=== PATIENT | female | born 1960 | race Caucasian/White ===

== ENCOUNTER → 2016-08-06 | Outpatient (CLI) | payer MEDICARE, MEDICAID ==
[~2016-08-06] MED LIST: ALBUTEROL SULFATE 2.5 MG/3 ML VIAL NEB ONE
== END | disposition home or self-care (01) ==
LOC: CT 14:04
PROVIDERS: ATTEND Internal Medicine
DX: R91.1 Solitary pulmonary nodule (principal)
CPT/HCPCS: 71250; 94060; J7611

== ENCOUNTER → 2016-09-04 | Outpatient (CLI) | payer MEDICARE, MEDICAID | END | disposition home or self-care (01) | LOC: GMAM 13:08 | PROVIDERS: ATTEND Family Medicine | DX: Z79.899 Other long term (current) drug therapy (principal); R30.0 Dysuria; E78.5 Hyperlipidemia, unspecified ==

== ENCOUNTER → 2016-09-15 | Outpatient (CLI) | payer MEDICARE, MEDICAID ==
--- NOTE | 2016-09-16 10:26 | CT ---
EXAM DESCRIPTION: CT ABDOMEN AND PELVIS WITHOUT AND WITH CONTRAST CLINICAL HISTORY: MICROSCOPIC HEMATURIA COMPARISON: None Available. TECHNIQUE: CT of the abdomen and pelvis are performed prior to and during IV bolus administration of nonionic contrast. Oral contrast media was not utilized. This exam was performed according to our departmental dose-optimization program, which includes automated exposure control, adjustment of the mA and/or kV according to patient size and/or use of iterative reconstruction technique. FINDINGS: Noncontrast imaging demonstrates mild atelectatic or fibrotic changes in each posterior lung base more prominent on the right. No free abdominal air and no abdominal or pelvic abnormal fluid collections are noted. Fluid-filled loops of bowel and rather marked lordosis of the lumbar spine, an anatomic variant is noted. Numerous small noncalcified stones in the dependent gallbladder is evident without ductal dilation. The adrenal glands are small and normal in no evidence of hydronephrosis is evident. A tiny one or 2 mm nonobstructing calculus is suggested in the lower pole calyx on the right. Intrarenal calculi on the left are not apparent. Normal size and appearance of the liver without focal mass and a small normal spleen is present. The unenhanced pancreas is unremarkable. Cortical enhancement of the kidneys demonstrate a tiny subcentimeter cyst involving the lower pole of the right kidney but no solid masses or left renal abnormalities or hydronephrosis noted. The distended gallbladder with multiple small stones is again noted. The right colon and cecum is mobile in appearance with the cecum actually lying to the left of midline in the upper abdomen. This represents an anatomic variant. Aortic calcification without aneurysm is noted. A widely patent superior mesenteric artery with moderate stenosis of the proximal celiac artery is evident. The retroperitoneum is otherwise unremarkable. The anterior abdominal wall is unremarkable with a small right and modest left fat-containing inguinal hernia. There is no evidence of bowel obstruction. Anteverted uterus in the central lower pelvis is noted without adnexal mass. No definite bladder abnormality is apparent. The bony spine and pelvis is unremarkable. IMPRESSION: 1. Normal-appearing kidneys with tiny one or 2 mm nonobstructing calyceal stone lower pole of the right kidney with a tiny subcentimeter simple cyst noted on contrast enhanced examination as well. Otherwise, normal appearance of the kidneys and bladder and collecting systems. 2. Cholelithiasis. 3. Aorto vascular calcification with moderate stenosis at the origin of the celiac axis. 4. Incidental note of retroaortic left renal vein, an anatomic variant. 5. Small fat-containing inguinal hernias bilaterally Electronically signed by: García Stephens MD 09/16/2016 10:23 AM CDT
== END ==
LOC: CT 13:38
PROVIDERS: ATTEND Family Medicine
DX: R31.21 Asymptomatic microscopic hematuria (principal); K80.20 Calculus of gallbladder without cholecystitis without obstruction; N20.0 Calculus of kidney; K40.20 Bilateral inguinal hernia, without obstruction or gangrene, not specified as recurrent

== ENCOUNTER → 2016-12-03 | Outpatient (CLI) | payer MEDICARE, MEDICAID | END | disposition home or self-care (01) | LOC: GMAM 16:50 | PROVIDERS: ATTEND Family Medicine | DX: R53.83 Other fatigue (principal); E83.42 Hypomagnesemia; E55.9 Vitamin D deficiency, unspecified ==

== ENCOUNTER → 2017-02-18 | Outpatient (CLI) | payer MEDICARE, MEDICAID | END | disposition home or self-care (01) | LOC: GMAM 16:47 | PROVIDERS: ATTEND Family Medicine | DX: E55.9 Vitamin D deficiency, unspecified (principal) ==

== ENCOUNTER → 2017-06-11 | Outpatient (CLI) | payer MEDICARE, MEDICAID | LOC: YCHH 15:34 | PROVIDERS: ATTEND Family Medicine | DX: E55.9 Vitamin D deficiency, unspecified (principal); E03.9 Hypothyroidism, unspecified; D64.9 Anemia, unspecified; E88.9 Metabolic disorder, unspecified; Z13.220 Encounter for screening for lipoid disorders ==

== ENCOUNTER → 2017-12-14 | Outpatient (CLI) | payer MEDICARE, MEDICAID | LOC: GMAM 16:44 | PROVIDERS: ATTEND Family Medicine | DX: R53.83 Other fatigue (principal) ==

== ENCOUNTER → 2017-12-23 | Outpatient (CLI) | payer MEDICARE, MEDICAID ==
--- NOTE | 2017-12-23 15:34 | CT ---
EXAM DESCRIPTION: Chest w/Contrast CLINICAL HISTORY: 57 years Female, PULMONARY NODULE COMPARISON: None. TECHNIQUE: Transaxial images were obtained with intravenous contrast media. Sagittal and coronal reconstruction was performed.This exam was performed according to our departmental dose-optimization program, which includes automated exposure control, adjustment of the mA and/or kV according to patient size and/or use of iterative reconstruction technique. FINDINGS: The thyroid is normal in appearance. No pathologic axillary adenopathy is seen. No hilar or mediastinal adenopathy is detected. No adrenal masses are detected. Minimal basilar atelectasis is observed. Bullous changes are observed in both lung apices. No parenchymal nodule or mass is seen. Degenerative changes are seen in the thoracic spine. IMPRESSION: 1. Marked findings of bullous emphysema are observed most pronounced in the upper lobes. 2. No pulmonary nodule is detected. Electronically signed by: Jorje Aguilar MD 12/23/2017 3:33 PM CDT
--- NOTE | 2017-12-24 16:31 | MAM ---
EXAM DESCRIPTION: 3D Screening BILATERAL : Digital Mammography. CLINICAL HISTORY: 57 years Female SCREEN . No complaints or personal history of breast cancer. Family history of ovarian cancer, sister, but no family history of breast cancer. Lifetime risk of developing breast cancer (Tyrer-Cuzick model)(%): 5.6. COMPARISON: 2-D digital screening bilateral mammography 12/26/2014.. No prior reports available. TECHNIQUE: Bilateral CC and MLO projection full-field images, Digital tomosynthesis mammographic technique. Bilateral digital 2-D full-field MLO images. CAD not utilized. Technically difficult study due to left shoulder with difficulty in imaging the left pectoral muscle on the MLO image. Also similar restriction on the prior mammograms. FINDINGS: The breast parenchymal density pattern is: Heterogeneously dense breast tissue, which may obscure small masses. No skin thickening or nipple retraction. Bilateral axillary lymph nodes. Few, solitary microcalcifications bilaterally. No new focal, stellate mass or density, focal asymmetry , and no suspicious microcalcifications bilaterally. Stable mammograms compared to prior study. Taking into account, differences in mammographic technique. IMPRESSION: Benign exam. BIRAD CATEGORY: 2 BENIGN FINDINGS. RECOMMENDATIONS: FOLLOW UP: Routine digital bilateral screening, one year interval from November 2017. Written communication explaining the IMPRESSION and follow-up, will be mailed to the patient and referring health care provider. According to the [employer], yearly mammograms are recommended starting at age 40 and continuing as long as a woman is in good health. Any breast change noted on a breast self-exam should be reported promptly to the patient's healthcare provider. Breast MRI is recommended for women with an approximately 20-25% or greater lifetime risk of breast cancer, including women with a strong family history of breast or ovarian cancer and women who have been treated for Hodgkin's disease. A negative mammographic report should not delay tissue diagnosis in patients with significant clinical history or physical findings. Extremely dense breast tissue limits the sensitivity of digital mammography. Electronically signed by: Tee Gresham MD 12/24/2017 4:30 PM CDT
== END ==
LOC: MAMMO 14:00
PROVIDERS: ATTEND Family Medicine
DX: Z12.31 Encounter for screening mammogram for malignant neoplasm of breast (principal); R91.1 Solitary pulmonary nodule

== ENCOUNTER → 2018-03-30 | Outpatient (CLI) | payer MEDICARE, MEDICAID | LOC: GMAM 16:45 | PROVIDERS: ATTEND Family Medicine | DX: R10.84 Generalized abdominal pain (principal) ==

== ENCOUNTER → 2018-04-04 | Outpatient (CLI) | payer MEDICARE, MEDICAID ==
--- NOTE | 2018-04-04 19:49 | US ---
EXAM DESCRIPTION: Abdomen,Complete: Ultrasound. CLINICAL HISTORY: GENERALIZED ABDOMINAL PAIN COMPARISON: CT scan of the abdomen and pelvis 09/15/2016. Cholelithiasis. TECHNIQUE: Transabdominal scannin-dimensional and Doppler modes. FINDINGS: Gallbladder: Numerous echogenic gallstones which are gravity dependent with patient change in position. Acoustic shadowing. Wall thickness 1.1 mm with no surrounding fluid. Nontender with transducer pressure on the patient. Common bile duct: Normal caliber 5.6 mm. Liver: Long axis of the right lobe is 15.0 cm. Normal echogenicity. Normal hepatopedal flow of the portal vein with normal caliber. No intrahepatic biliary dilatation. Smooth capsule with no ascites. Pancreas: Included segments with normal echogenicity. Duct not seen.. Abdominal aorta: Normal caliber from the proximal segment to the distal bifurcation with minimal atherosclerotic irregularity. IVC: visualized; normal caliber. Spleen normal echogenicity; long axis measurement is 10.7 cm. Right kidney: 10.2 cm long axis with normal cortical thickness and echogenicity. No hydronephrosis, perirenal fluid, or abnormal vascularity. Left kidney: 10.7 cm long axis with normal cortical thickness and echogenicity. No hydronephrosis, perirenal fluid, or abnormal vascularity. IMPRESSION: 1. Cholelithiasis of the gallbladder. No wall thickening or fluid. Nontender with transducer pressure. Normal caliber of the common bile duct. 2. ultrasound of the liver, pancreas, spleen, and kidneys is unremarkable. Normal caliber of the abdominal aorta and the IVC. Electronically signed by: Tee Gresham MD 04/04/2018 7:46 PM [facility]
== END ==
LOC: US 13:30
PROVIDERS: ATTEND Family Medicine
DX: R10.84 Generalized abdominal pain (principal); K80.20 Calculus of gallbladder without cholecystitis without obstruction

== ENCOUNTER → 2018-04-08 | Outpatient (CLI) | payer MEDICARE, MEDICAID | LOC: YCHH 13:18 | PROVIDERS: ATTEND Family Medicine | DX: D64.9 Anemia, unspecified (principal); N18.9 Chronic kidney disease, unspecified; E78.5 Hyperlipidemia, unspecified ==

== ENCOUNTER → 2018-04-11 | Outpatient (CLI) | payer MEDICARE, MEDICAID | LOC: GMAM 16:56 | PROVIDERS: ATTEND Family Medicine | DX: E53.8 Deficiency of other specified B group vitamins (principal); E03.9 Hypothyroidism, unspecified; E55.9 Vitamin D deficiency, unspecified ==

== ENCOUNTER → 2018-10-06 | Outpatient (CLI) | payer MEDICARE, MEDICAID | LOC: GMAM 16:31 | PROVIDERS: ATTEND Family Medicine | DX: E53.8 Deficiency of other specified B group vitamins (principal); E03.9 Hypothyroidism, unspecified; E55.9 Vitamin D deficiency, unspecified; I10 Essential (primary) hypertension; Z79.899 Other long term (current) drug therapy ==

== ENCOUNTER → 2019-03-21 | Outpatient (CLI) | payer MEDICARE, MEDICAID | LOC: GMAM 16:59 | PROVIDERS: ATTEND Family Medicine | DX: M25.50 Pain in unspecified joint (principal); Z79.899 Other long term (current) drug therapy ==

== ENCOUNTER → 2019-04-13 | Outpatient (CLI) | payer MEDICARE, MEDICAID | LOC: YCHH 13:35 | PROVIDERS: ATTEND Family Medicine | DX: R79.89 Other specified abnormal findings of blood chemistry (principal); E78.5 Hyperlipidemia, unspecified; D63.1 Anemia in chronic kidney disease; E53.8 Deficiency of other specified B group vitamins; E03.9 Hypothyroidism, unspecified; E55.9 Vitamin D deficiency, unspecified ==

== ENCOUNTER → 2019-10-11 | Outpatient (CLI) | payer MEDICARE, MEDICAID | LOC: YCHH 12:36 | PROVIDERS: ATTEND Family Medicine | DX: R79.89 Other specified abnormal findings of blood chemistry (principal); E55.9 Vitamin D deficiency, unspecified; E03.9 Hypothyroidism, unspecified; E53.8 Deficiency of other specified B group vitamins; E78.5 Hyperlipidemia, unspecified; D64.9 Anemia, unspecified ==

== ENCOUNTER 2019-12-14 20:13 | Emergency (ER) | payer MEDICARE, OTHER ==
[2019-12-14] MEDS ORDERED: SODIUM CHLORIDE 0.9% 1000ML 1,000 ML IVS ONE ×2 (20:34→21:45)
--- NOTE | 2019-12-14 21:03 | RAD ---
EXAM: XR Chest, 1 View CLINICAL HISTORY: ruq/rt lower ant chest pain 4 days TECHNIQUE: Frontal view of the chest. COMPARISON: 12/23/2017. FINDINGS: Lungs: Stable bullous emphysematous changes are present. Pleural space: No pneumothorax or pleural effusion. Heart: Normal cardiac size and configuration. Mediastinum: No abnormality noted. Bones/joints: No osseous destruction or sclerosis noted. IMPRESSION: Chronic changes as above. No acute disease. Electronically signed by: Irais Ness MD 12/14/2019 9:01 PM CDT
[2019-12-14 22:08] VITALS: O2SAT 96
--- NOTE | 2019-12-14 22:57 | ED.PDOC ---
History of Present Illness - General Chief Complaint: GI Problem Stated Complaint: RUQ pain Time Seen by Provider: 12/14/19 20:28 Source: patient Exam Limitations: no limitations - History of Present Illness Initial Comments: The patient is a 59-year-old female presented emergency room secondary to 4 days of intermittent right upper quadrant pain. It does not seem to be made worse with palpation, movement, coughing. Meals do not seem to affect it. When the pain comes on it does seem to make her nauseated however. She does have known gallstones. No vomiting. No evidence of jaundice. No fever. No rash. She does have a mild history of reflux. Timing/Duration: intermittent, other Severity: moderate - 4 days Improving Factors: nothing Worsening Factors: nothing Associated Symptoms: malaise Allergies/Adverse Reactions: Allergies NO KNOWN ALLERGY Allergy (Unverified 05/18/13 17:30) Home Medications: Ambulatory Orders Famotidine 20 mg PO DAILY #30 tab 12/14/19 Levetiracetam [Keppra] 500 mg PO DAILY 12/14/19 Levothyroxine Sodium 75 mcg PO DAILY 12/14/19 Oxycodone W/ Acetaminophen [Oxycodone/Acetaminophen 10-325 mg] 10 mg 5XD 12/14/19 Review of Systems - Review of Systems Constitutional: States: no symptoms reported EENTM: States: no symptoms reported Respiratory: States: no symptoms reported Cardiology: States: no symptoms reported Gastrointestinal/Abdominal: States: abdominal pain, nausea Genitourinary: States: no symptoms reported Musculoskeletal: States: no symptoms reported Skin: States: no symptoms reported Neurological: States: no symptoms reported Endocrine: States: no symptoms reported All other Systems: No Change from Baseline Past Medical History (General) - Patient Medical History Hx Seizures: Yes Hx Stroke: Yes Hx Dementia: No Hx Asthma: No Hx of COPD: Yes Hx Cardiac Disorders: No Hx Congestive Heart Failure: No Hx Pacemaker: No Hx Hypertension: No Hx Thyroid Disease: Yes Hx Diabetes: No Hx Gastroesophageal Reflux: No Hx Renal Disease: No Hx Cancer: No Hx of HIV: No Hx Hepatitis C: No Hx MRSA: No MRSA Source:: Wound Surgical History: other - Vaccination History Hx Tetanus, Diphtheria Vaccination: No Hx Influenza Vaccination: No Hx Pneumococcal Vaccination: No - Social History Hx Tobacco Use: Yes - Pack a day Hx Chewing Tobacco Use: No Hx Alcohol Use: No Hx Substance Use: No Hx Substance Use Treatment: No Hx Depression: No Feels Threatened In Home Enviroment: No Feels Threatened In a Relationship: No Hx Physical Abuse: No Hx Emotional Abuse: No Hx Suspected Abuse: No - Female History Patient is a Female of Child Bearing Age (10 -59 yrs old): No Patient : No Family Medical History - Family History Mother Living Status: Hx Family Cancer: Yes Physical Exam - Physical Exam General Appearance: Alert, Comfortable, No apparent distress Eye Exam: bilateral normal Ears, Nose, Throat: hearing grossly normal, normal pharynx Neck: full range of motion, supple Respiratory: lungs clear, normal breath sounds, no respiratory distress, no accessory muscle use Cardiovascular/Chest: normal peripheral pulses, regular rate, rhythm, no edema Peripheral Pulses: radial,right: 2+, radial,left: 2+ Gastrointestinal/Abdominal: non tender - No definite palpable mass. 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 Neurologic: alert, normal mood/affect, oriented x 3, other - Chronic neurological deficits to the left side Skin Exam: normal color Comments: Vital Signs - 24 hr 12/14/19 12/14/19 12/14/19 20:27 21:21 22:00 Temperature 97.2 F L Pulse Rate [ 88 76 72 Pulse Ox] Respiratory 16 16 16 Rate Blood Pressure 132/67 128/72 132/74 [Left Arm] O2 Sat by Pulse 98 95 96 Oximetry Progress - Progress Progress: 12/14/19 22:59 The patient is a 59-year-old female presented emergency room secondary to intermittent right upper quadrant pain. The patient does have known gallstones and this may be the source of her discomfort. Laboratory work shows no significant evidence of infection and no elevation of liver function test. Physical exam is also reassuring at this time. The patient has received 2 L of fluid as laboratory work did show some dehydration. I want to place the patient on a couple of weeks of famotidine in case this is some mild gastritis or duodenitis causing the symptoms. I do however believe she needs to follow-up with the general surgeon of her choice in the next couple of weeks for a further evaluation, to see if additional work-up in the form of ultrasonography, which is not available tonight, or something along the lines of a HIDA scan might be warranted for further work-up. She does also need to avoid constipation which can also cause intermittent abdominal pain. ER warnings were given for any significant worsening. [email or web address] [id number] - Results/Orders Results/Orders: Chest x-ray shows no acute pathology. Laboratory Tests 12/14/19 12/14/19 12/14/19 20:59 20:59 22:34 WBC 7.2 RBC 4.53 Hgb 14.2 Hct 40.3 MCV 89.0 MCH 31.3 H MCHC 35.2 RDW 13.1 Plt Count 478 H MPV 6.8 L Absolute Neuts (auto) 2.80 Absolute Lymphs (auto) 3.50 H Absolute Monos (auto) 0.70 Absolute Eos (auto) 0.20 Absolute Basos (auto) 0.10 Neutrophils % 38.0 L Lymphocytes % 48.1 Monocytes % 9.5 H Eosinophils % 3.3 Basophils % 1.1 Sodium 141 Potassium 3.8 Chloride 104 Carbon Dioxide 25 Anion Gap 15.8 BUN 20 H Creatinine 0.58 L BUN/Creatinine Ratio 34.5 H Random Glucose 108 H Serum Osmolality 284.4 Calcium 9.4 Magnesium 1.7 L Total Bilirubin 0.6 AST 27 ALT 29 Alkaline Phosphatase 40 L Creatine Kinase 66 CK-MB (CK-2) 1.9 CK-MB (CK-2) % Not Reportable Troponin I < 0.02 B-Natriuretic Peptide < 15.0 Serum Total Protein 7.7 Albumin 4.5 Globulin 3.2 Albumin/Globulin Ratio 1.4 Amylase 72 Lipase 34 Urine Color Yellow Urine Appearance Clear Urine pH 6.0 Ur Specific [place] 1.025 Urine Protein Negative Urine Glucose (UA) Negative Urine Ketones Negative Urine Blood Negative Urine Nitrite Negative Urine Bilirubin Negative Urine Urobilinogen 0.2 Ur Leukocyte Esterase Negative Urine RBC 0-1 Urine WBC 0 Ur Epithelial Cells 1-3 Urine Bacteria 0 Departure - Departure Clinical Impression: Dehydration Abdominal pain Qualifiers: Abdominal location: right upper quadrant Qualified Code(s): R10.11 - Right upper quadrant pain Disposition: Discharge to Home or Self Care Condition: Fair Departure Forms: ED Discharge - Pt. Copy, Patient Portal Self Enrollment Instructions: Dehydration, Adult (DC) Diet: regular diet Activity: increase activity as tolerated Referrals: García Garcia MD [Primary Care Provider] - 1-2 Weeks Prescriptions: Famotidine 20 mg PO DAILY #30 tab Home Medications: Ambulatory Orders Famotidine 20 mg PO DAILY #30 tab 12/14/19 Levetiracetam [Keppra] 500 mg PO DAILY 12/14/19 Levothyroxine Sodium 75 mcg PO DAILY 12/14/19 Oxycodone W/ Acetaminophen [Oxycodone/Acetaminophen 10-325 mg] 10 mg 5XD 12/14/19 Additional Instructions: The patient is a 59-year-old female presented emergency room secondary to intermittent right upper quadrant pain. The patient does have known gallstones and this may be the source of her discomfort. Laboratory work shows no significant evidence of infection and no elevation of liver function test. Physical exam is also reassuring at this time. The patient has received 2 L of fluid as laboratory work did show some dehydration. I want to place the patient on a couple of weeks of famotidine in case this is some mild gastritis or duodenitis causing the symptoms. I do however believe she needs to follow-up with the general surgeon of her choice in the next couple of weeks for a further evaluation, to see if additional work-up in the form of ultrasonography, which is not available tonight, or something along the lines of a HIDA scan might be warranted for further work-up. She does also need to avoid constipation which can also cause intermittent abdominal pain. ER warnings were given for any significant worsening.
[2019-12-14 23:10] VITALS: BP 128/64; TEMP 97.1
== END 2019-12-14 23:09 | disposition home or self-care (01) ==
LOC: ER 20:13
DX: R10.11 Right upper quadrant pain (principal); E86.0 Dehydration; J44.9 Chronic obstructive pulmonary disease, unspecified; Z86.73 Personal history of transient ischemic attack (TIA), and cerebral infarction without residual deficits; K21.9 Gastro-esophageal reflux disease without esophagitis; F17.200 Nicotine dependence, unspecified, uncomplicated; Z79.899 Other long term (current) drug therapy; I69.998 Other sequelae following unspecified cerebrovascular disease; K80.80 Other cholelithiasis without obstruction
CPT/HCPCS: 36415; 71045; 80053; 81001; 82150; 82550; 82553; 83690; 83735; 83880; 84484; 85025; J7030

== ENCOUNTER → 2019-12-28 | Outpatient (CLI) | payer MEDICARE, OTHER ==
--- NOTE | 2019-12-29 08:59 | CT ---
EXAM DESCRIPTION: CTA Abdomen: Computed Tomography. CLINICAL HISTORY: ISCHEMIC BOWEL COMPARISON: CT scan of the abdomen and pelvis August 2016. TECHNIQUE: CT angiography of the abdominal aorta and pelvis is performed during rapid bolus administration of IV contrast media. Three-dimensional volume-rendering imaging is reviewed along with 2.5 x 2.5 mm source images, and 0.6 mm coronal and sagittal reformats. Followed by 5 minute delayed images of the abdomen and pelvis from the bilateral lung bases to the pubic symphysis. Total Exam DLP: 1520 mGy-cm. This exam was performed according to our departmental CT dose-optimization program which includes automated exposure control, adjustment of the mA and/or kV according to patient size and/or use of iterative reconstruction technique; to reduce radiation dose to as low as reasonably achievable (ALARA). FINDINGS: Upper abdominal aorta: Minimal intimal wall thickening and atherosclerotic calcification. Approximately 25% diameter stenosis of the proximal celiac trunk. Less than 20% diameter stenosis of the proximal SMA. No significant calcification at the major branches from the SMA. Mid-abdominal aorta: Intimal wall thickening. Calcification at the ostium of the right single renal artery; no significant stenoses. Ostium of the single left renal artery is unremarkable. Distal abdominal aorta: Moderate intimal wall thickening and atherosclerotic calcification, especially just superior to the bifurcation. Minimal calcification of the ostium of the internal mesenteric artery. No significant stenosis. Common iliacs: Approximately 40% diameter stenosis of the proximal left common iliac, 55% diameter stenosis 2 cm more distally. Approximately 30% diameter stenosis of the distal right common iliac artery proximal to the bifurcation.. Internal iliacs: Approximately 50% diameter stenosis of the proximal right internal iliac artery and 75% diameter stenosis of the proximal left internal iliac artery. External iliac arteries. Approximately 50% diameter stenosis of the proximal left external iliac artery. Approximately 60% diameter stenosis by soft plaque of the mid left external iliac artery on CTA axial series 2, image 110. Right CASE PACKER: 25% diameter stenosis of the right CASE PACKER just proximal to the bifurcation. No significant stenosis in the proximal right DFA. Right SFA: No significant stenosis in the proximal vessel Left CASE PACKER: 40% diameter stenosis with calcified plaque proximal. Left SFA: No significant stenosis in the proximal vessel. Lung bases and pleura: Minimal bilateral posterior dependent lower lobe atelectasis more right than left. Liver, Stomach, Spleen, Adrenal Glands: Long axis right lobe 16.8 cm no focal lesions. Moderate distention of the stomach by fluid. Adrenal glands and spleen negative. Pancreas, Gallbladder, Ducts: Multiple echogenic stones and/or sludge in the gallbladder without wall thickening. Moderate dilation of the distal common bile duct, narrowing distally. Pancreas negative. Kidneys and Ureters: Multiple bilateral cysts less than 1 cm diameter, except for 1.5 cm cyst upper pole left kidney. Mesentery: No fatty stranding, no fascial thickening, no free air. Aorta: Please see above. Small Bowel: No obstruction, no wall thickening, no mesenteric edema around the bowel no mucosal edema, and no air-fluid levels. Terminal Ileum/Cecum: Located in the midline and slightly to the left of midline superior to the uterus. Mild to moderate distention of the cecum by fecal matter. Tip of the appendix is anterior to the lower pole of the left kidney and the proximal ureter. No inflammatory changes. Colon: Minimal burden of fecal material. Moderate redundancy of sigmoid colon. No complications Pelvic Organs: Retroverted, retroflexed uterus. Ovaries partially visualized. No fluid in the cul-de-sac. No bladder wall thickening. Spine and Bony Pelvis: Minimal spondylosis lower thoracic spine. Heterogeneous bone marrow density decrease in the pelvis and hip bones. Minimal hip arthrosis. Abdominal Wall/Back Soft Tissues: Bilateral fatty inguinal hernias not containing bowel. Stable since the prior study.. IMPRESSION: 1. Approximately 25% diameter stenosis of the proximal celiac trunk and less than 20% diameter stenosis of the proximal SMA. Unlikely to be clinically significant. Even smaller stenosis of the proximal AAMIR. 2. 75% diameter stenosis of the proximal left internal iliac artery. Approximately 60% diameter stenosis by soft plaque of the mid left external iliac artery. Approximately 50% diameter stenosis of the proximal right internal iliac artery. 3. Hepatomegaly but no focal lesions or abnormal contrast enhancement. Multiple bilateral renal cysts have increased since the prior study. 4. Mobile cecum located in the left lower quadrant of the abdomen with the tip of the appendix anterior to the lower right kidney. 5. Bilateral moderate sized fatty inguinal hernias stable in size since the prior study with no bowel incarceration. Electronically signed by: Tee Gresham MD 12/29/2019 8:58 AM CDT
== END ==
LOC: CT 14:00
PROVIDERS: ATTEND Family Medicine
DX: R16.0 Hepatomegaly, not elsewhere classified (principal); K40.20 Bilateral inguinal hernia, without obstruction or gangrene, not specified as recurrent; I70.8 Atherosclerosis of other arteries; I77.4 Celiac artery compression syndrome; N28.1 Cyst of kidney, acquired

== ENCOUNTER 2020-02-29 15:14 | Emergency (ER) | payer MEDICARE, OTHER ==
[2020-02-29] MEDS ORDERED: SODIUM CHLORIDE 0.9% 1000ML 1,000 ML IVS ONE ×2 (15:28→17:33)
[2020-02-29] MEDS ORDERED: KETOROLAC TROMETHAMINE INJ 30 MG/ML VIAL IM ONE (15:28)
--- NOTE | 2020-02-29 15:54 | RAD ---
EXAM DESCRIPTION: Abdomen Series CLINICAL HISTORY: 59 years Female, ruq pain 3 days COMPARISON: November 2019 Findings: 3 view(s)/radiograph(s) No acute cardiopulmonary abnormality. No free air beneath the diaphragm. Nonobstructive bowel gas pattern. Moderate stool volume. No suspicious calcification. No air-fluid level. No acute or suspicious osseous abnormality. Scattered degenerative changes present. IMPRESSION: No acute radiographic abnormality. Electronically signed by: Samuel Stone MD 02/29/2020 3:53 PM [facility]
[2020-02-29] MEDS ORDERED: PROMETHAZINE HCL INJ 25 MG in SODIUM CHLORIDE 0.9% 50ML 50 ML IVPB ONE (17:31)
[2020-02-29] MEDS ORDERED: ALUM & MAG HYDROX-SIMETHICONE 30 ML, LIDOCAINE VISCOUS 2% 15 ML PO ONE ×2 (17:31)
--- NOTE | 2020-02-29 17:32 | US ---
EXAM DESCRIPTION: Abdomen,Limited CLINICAL HISTORY: ruq pain COMPARISON: CT the abdomen pelvis dated November 2019 TECHNIQUE: Right upper quadrant ultrasound] FINDINGS: Mild hepatic steatosis is observed. There is no bile duct dilatation. The common bile duct measures 5.2 mm. The gallbladder is packed with gallstones. The pancreas has a normal appearance. The upper abdominal aorta and the inferior vena cava are unremarkable. The right kidney is normal in size, shape, and echotexture. IMPRESSION: 1. Hepatic steatosis. 2. Cholelithiasis Electronically signed by: Jorje Aguilar MD 02/29/2020 5:[address] [facility]
[2020-02-29] MEDS ORDERED: DICYCLOMINE HCL 20 MG TAB PO ONE (17:42)
--- NOTE | 2020-02-29 19:32 | ED.PDOC ---
History of Present Illness - General Chief Complaint: GI Problem Stated Complaint: gallstone pain Time Seen by Provider: 02/29/20 15:18 Source: patient Exam Limitations: no limitations - History of Present Illness Initial Comments: The patient is a 59-year-old female presented emergency room secondary to recurrence of her gallbladder pain. She has had about 4 episodes of noninfectious cholecystitis due to numerous gallstones. No vomiting. Mild nausea. 3 days of symptoms. Pain is localized to the right upper quadrant and she is not hungry. No jaundice. No itching. No fever. No trauma. Timing/Duration: other - 3 days Severity: moderate Improving Factors: nothing Worsening Factors: eating Associated Symptoms: loss of appetite, malaise, nausea/vomiting Allergies/Adverse Reactions: Allergies NO KNOWN ALLERGY Allergy (Unverified 05/18/13 17:30) Home Medications: Ambulatory Orders Famotidine 20 mg PO DAILY #30 tab 12/14/19 Levetiracetam [Keppra] 500 mg PO DAILY 12/14/19 Levothyroxine Sodium 75 mcg PO DAILY 12/14/19 Oxycodone W/ Acetaminophen [Oxycodone/Acetaminophen 10-325 mg] 10 mg 5XD 12/14/19 Dicyclomine HCl [Dicyclomine Hydrochloride] 10 mg PO Q8HR PRN #20 cap 02/29/20 Ondansetron Odt [Zofran ODT] 4 mg PO Q8HR PRN #5 tab 02/29/20 Review of Systems - Review of Systems Constitutional: States: malaise EENTM: States: no symptoms reported Respiratory: States: no symptoms reported Cardiology: States: no symptoms reported Gastrointestinal/Abdominal: States: abdominal pain, nausea Genitourinary: States: no symptoms reported Musculoskeletal: States: no symptoms reported Skin: States: no symptoms reported Neurological: States: no symptoms reported Endocrine: States: no symptoms reported All other Systems: No Change from Baseline Past Medical History (General) - Patient Medical History Hx Seizures: Yes Hx Stroke: Yes Hx Dementia: No Hx Asthma: No Hx of COPD: Yes Hx Cardiac Disorders: No Hx Congestive Heart Failure: No Hx Pacemaker: No Hx Hypertension: No Hx Thyroid Disease: Yes Hx Diabetes: No Hx Gastroesophageal Reflux: No Hx Renal Disease: No Hx Cancer: No Hx of HIV: No Hx Hepatitis C: No Hx MRSA: No MRSA Source:: Wound - Vaccination History Hx Tetanus, Diphtheria Vaccination: No Hx Influenza Vaccination: No Hx Pneumococcal Vaccination: No - Social History Hx Tobacco Use: Yes - Pack a day Hx Chewing Tobacco Use: No Hx Alcohol Use: No Hx Substance Use: No Hx Substance Use Treatment: No Hx Depression: No Hx Physical Abuse: No Hx Emotional Abuse: No Hx Suspected Abuse: No - Female History Patient : No Family Medical History - Family History Mother Living Status: Hx Family Cancer: Yes Physical Exam - Physical Exam General Appearance: Alert, Other - Uncomfortable Eye Exam: left normal Ears, Nose, Throat: hearing grossly normal, normal ENT inspection Neck: full range of motion, supple Respiratory: lungs clear, normal breath sounds, no respiratory distress, no accessory muscle use Cardiovascular/Chest: normal peripheral pulses, regular rate, rhythm, no edema Peripheral Pulses: radial,right: 2+, radial,left: 2+ Gastrointestinal/Abdominal: soft, other - Right upper quadrant discomfort to deep palpation. Rectal Exam: deferred Extremity: normal range of motion, non-tender, normal inspection, no pedal edema, normal capillary refill Neurologic: call box wirer II-XII nml as tested, alert, normal mood/affect, oriented x 3 Skin Exam: normal color Comments: Vital Signs - 24 hr 02/29/20 15:22 Temperature 97.4 F L Pulse Rate [ 69 right brachial] Respiratory 22 Rate Blood Pressure 118/73 [right brachial ] O2 Sat by Pulse 94 L Oximetry Progress - Progress Progress: 02/29/20 19:33 The patient is a 59-year-old female presented emergency room secondary to noninfectious cholecystitis related to a gallbladder full of gallstones. The patient was hydrated with 2 L of IV fluids, given a dose of Toradol and a dose of Bentyl as well as a dose of Phenergan. The patient is going to be written for Zofran for as needed use as she will also be written for Bentyl for as needed use for the next week or so. She does need to contact a general surgeon to get her gallbladder out. Again there is no clinical or laboratory evidence of infection at this point. Obviously if the patient's symptoms worsen or she starts developing fever and vomiting then additional work-up would be warranted. ER warnings are given. [email or web address] [phone] - Results/Orders Results/Orders: Right upper quadrant ultrasound shows a gallbladder full of stones. No ductal dilation. No obvious wall thickening or pericholecystic fluid. Laboratory Tests 02/29/20 02/29/20 02/29/20 16:12 16:12 16:12 WBC 8.5 RBC 4.46 Hgb 13.8 Hct 39.9 MCV 89.5 MCH 30.9 MCHC 34.5 RDW 13.3 Plt Count 464 H MPV 7.0 L Absolute Neuts (auto) 4.40 Absolute Lymphs (auto) 2.90 Absolute Monos (auto) 0.80 Absolute Eos (auto) 0.30 Absolute Basos (auto) 0.10 Neutrophils % 51.2 Lymphocytes % 34.6 Monocytes % 9.6 H Eosinophils % 3.0 Basophils % 1.6 PT INR PTT (SP) Sodium 138 Potassium 4.1 Chloride 101 Carbon Dioxide 25 Anion Gap 16.1 BUN 18 Creatinine 0.59 L BUN/Creatinine Ratio 30.5 H Random Glucose 85 Serum Osmolality 276.8 Lactic Acid 1.1 Calcium 9.2 Total Bilirubin 0.5 AST 35 ALT 31 Alkaline Phosphatase 33 L Creatine Kinase 101 CK-MB (CK-2) 1.5 CK-MB (CK-2) % Not Reportable Troponin I < 0.02 Serum Total Protein 7.5 Albumin 4.4 Globulin 3.1 Albumin/Globulin Ratio 1.4 Amylase 57 Lipase 25 02/29/20 16:12 WBC RBC Hgb Hct MCV MCH MCHC RDW Plt Count MPV Absolute Neuts (auto) Absolute Lymphs (auto) Absolute Monos (auto) Absolute Eos (auto) Absolute Basos (auto) Neutrophils % Lymphocytes % Monocytes % Eosinophils % Basophils % PT 11.4 H INR 1.15 PTT (SP) 24.9 Sodium Potassium Chloride Carbon Dioxide Anion Gap BUN Creatinine BUN/Creatinine Ratio Random Glucose Serum Osmolality Lactic Acid Calcium Total Bilirubin AST ALT Alkaline Phosphatase Creatine Kinase CK-MB (CK-2) CK-MB (CK-2) % Troponin I Serum Total Protein Albumin Globulin Albumin/Globulin Ratio Amylase Lipase Departure - Departure Clinical Impression: Cholecystitis with cholelithiasis Qualifiers: Cholelithiasis location: gallbladder Cholecystitis acuity: acute and chronic Biliary obstruction: without biliary obstruction Qualified Code(s): K80.12 - Calculus of gallbladder with acute and chronic cholecystitis without obstruction Disposition: Discharge to Home or Self Care Condition: Fair Departure Forms: ED Discharge - Pt. Copy, Patient Portal Self Enrollment Diet: other - Liquid diet for the next few days and then a low-fat low- cholesterol diet Activity: increase activity as tolerated Referrals: García Garcia MD [Primary Care Provider] - 1-2 Weeks Prescriptions: Dicyclomine HCl [Dicyclomine Hydrochloride] 10 mg PO Q8HR PRN #20 cap PRN Reason: Abdominal Cramping Ondansetron Odt [Zofran ODT] 4 mg PO Q8HR PRN #5 tab PRN Reason: Nausea--Moderate Home Medications: Ambulatory Orders Famotidine 20 mg PO DAILY #30 tab 12/14/19 Levetiracetam [Keppra] 500 mg PO DAILY 12/14/19 Levothyroxine Sodium 75 mcg PO DAILY 12/14/19 Oxycodone W/ Acetaminophen [Oxycodone/Acetaminophen 10-325 mg] 10 mg 5XD 12/14/19 Dicyclomine HCl [Dicyclomine Hydrochloride] 10 mg PO Q8HR PRN #20 cap 02/29/20 Ondansetron Odt [Zofran ODT] 4 mg PO Q8HR PRN #5 tab 02/29/20 Additional Instructions: The patient is a 59-year-old female presented emergency room secondary to noninfectious cholecystitis related to a gallbladder full of gallstones. The patient was hydrated with 2 L of IV fluids, given a dose of Toradol and a dose of Bentyl as well as a dose of Phenergan. The patient is going to be written for Zofran for as needed use as she will also be written for Bentyl for as needed use for the next week or so. She does need to contact a general surgeon to get her gallbladder out. Again there is no clinical or laboratory evidence of infection at this point. Obviously if the patient's symptoms worsen or she starts developing fever and vomiting then additional work-up would be warranted. She does need to maintain a liquid diet for the next few days followed by a low-fat low-cholesterol diet. She does need to keep her self very well- hydrated. ER warnings are given.
[2020-02-29 20:04] VITALS: TEMP 97; O2SAT 97
[2020-02-29 20:06] VITALS: BP 142/70
== END 2020-02-29 20:06 | disposition home or self-care (01) ==
LOC: ER 15:14
DX: K80.12 Calculus of gallbladder with acute and chronic cholecystitis without obstruction (principal); R10.11 Right upper quadrant pain; J44.9 Chronic obstructive pulmonary disease, unspecified; R56.9 Unspecified convulsions; E07.9 Disorder of thyroid, unspecified; Z86.73 Personal history of transient ischemic attack (TIA), and cerebral infarction without residual deficits; Z87.891 Personal history of nicotine dependence; Z79.899 Other long term (current) drug therapy
CPT/HCPCS: 36415; 74019; 76775; 80053; 82150; 82550; 82553; 83605; 83690; 84484; 85025; 85610; 85730; 87040; A4216; J1885; J2550; J7030

== ENCOUNTER 2020-03-21 06:46 | Day surgery (SDC) | payer MEDICARE, OTHER ==
[~2020-03-21 06:46] MED LIST changes: -ALBUTEROL SULFATE 2.5 MG/3 ML VIAL NEB ONE; +LACTATED RINGERS 1,000 ML ONE
[2020-03-21] MEDS ORDERED: LIDOCAINE 1% 10 ML VIAL INJ ONE (07:00)
[2020-03-21] MEDS ORDERED: PROPOFOL 200 MG/20 ML VIAL IV ONE (07:00)
[2020-03-21] MEDS ORDERED: MAGNESIUM SULFATE INJ 1 GM/2 ML VIAL ONE (07:00)
[2020-03-21] MEDS ORDERED: DEXAMETHASONE INJ 10 MG/ML VIAL ONE (07:00)
--- NOTE | 2020-03-21 07:10 | RAD ---
Exam(s): XR CHEST 2 VIEWS: 03/20/2020 1:59 PM [facility] [employer]IC[employer] Indication: preop Comparison Study Date: December 14, 2019 Technique: 2 view chest radiograph. Findings: The lungs are emphysematous. There is no infiltrate or generalized edema. No pleural effusion or pneumothorax. Heart size is normal. Unchanged mediastinal contours. No bone abnormality is identified. IMPRESSION: Emphysema is suggested. No acute abnormality. Electronically signed by: Tee Garcia MD 03/21/2020 7:08 AM [employer]
[2020-03-21] MEDS ORDERED: BUPIVACAINE 0.25% W/EPI 50 ML VIAL INJ ONE ×2 (07:50→10:13)
[2020-03-21] MEDS ORDERED: SUGAMMADEX SODIUM 200 MG/2 ML VIAL IV ONE (09:40)
[2020-03-21] MEDS ORDERED: ROCURONIUM BROMIDE 10 MG/ML VIAL ONE (09:40)
[2020-03-21] MEDS ORDERED: FAMOTIDINE INJ 10 MG/ML VIAL IV ONE (09:40)
[2020-03-21] MEDS ORDERED: DEXMEDETOMIDINE HCL 200 MCG/2 ML INJ IV ONE (09:40)
[2020-03-21] MEDS ORDERED: fentaNYL CITRATE INJ 50 MCG/ML 5 ML AMP ONE (09:40)
[2020-03-21] MEDS ORDERED: MIDAZOLAM INJ 2 MG/2 ML VIAL ONE (09:40)
[2020-03-21] MEDS ORDERED: hydrALAZINE HCl 20 MG/ML VIAL ONE (10:49)
[2020-03-21] MEDS ORDERED: LACTATED RINGERS 400 ML IVS ONE (11:12)
[2020-03-21] MEDS ORDERED: LEVALBUTEROL NEBS 1.25 MG/3 ML VIAL NEB ONE ×2 (11:21)
--- NOTE | 2020-03-21 11:34 | OP ---
DATE OF PROCEDURE: 03/21/20 PREOPERATIVE DIAGNOSIS: 1. Symptomatic cholelithiasis. POSTOPERATIVE DIAGNOSIS: 1. Symptomatic cholelithiasis. PROCEDURE: 1. Laparoscopic cholecystectomy. SURGEON: Nino Nolasco MD. ANESTHESIA: General, Rao Chacko CRNA. FINDINGS: Distended gallbladder, male stones. The anatomy was clearly visualized through the triangle of Calot. COMPLICATIONS: None. ESTIMATED BLOOD LOSS: Minimal. SPECIMEN: Gallbladder. PLAN: Discharge. INDICATION: As stated. PROCEDURE: General anesthesia was induced. The patient was prepped and draped in sterile fashion. Marcaine 0.5% with epinephrine was used at all incision sites. While maintaining upward traction, a shahid was made near the base of the umbilicus. Veress needle was introduced. There was free flow of fluid into the peritoneal cavity which was insufflated to an appropriate level with CO2 gas. The 5 mm trocar was placed followed by the camera. There was no evidence of bleeding or bowel injury. The patient was positioned and subxiphoid and lateral ports were placed under direct visualization without difficulty. The gallbladder was distended and there was a large left lobe of the liver, but it was easily grasped midway and retracted superiorly and laterally. We moved it medially to get the liver out of the way and then we could see the infundibulum. It was grasped. We took down the peritoneum both medially and laterally to allow to elevate the infundibular structures. The artery was identified. It was triply ligated. We then isolated the duct and it was triply ligated. The common duct could be seen through the fatty tissue. The gallbladder was then dissected routinely off the fossa and removed in the EndoCatch bag. There was minimal bile spillage which was irrigated and aspirated. At that time, the fossa was examined. It remained hemostatic. The clips were intact. There was no bleeding or bile leakage. The subxiphoid fascia was then closed with 0 Vicryl using the suture passer. It was airtight and non-bleeding. The remaining trocars were removed. There was no bleeding. After desufflating the abdomen, the wounds were closed with Monocryl. Dressings were applied. The patient was awakened and taken to Recovery in stable condition to be discharged. She takes oxycodone 10 mg at home. I recommended she augment those or take some NSAIDs for the pain and ice. I do not think I can give her anything that will add to the 60 mg of oxycodone a day. #[id number] cc: García Jordan MD MTDD
[2020-03-21 11:48] VITALS: O2SAT 93
[2020-03-21] MEDS ORDERED: HYDROcodone 5MG/APAP 325MG 1 EA TAB ONE (12:03)
[2020-03-21] MEDS ORDERED: ONDANSETRON INJ 4 MG/2 ML VIAL ONE (12:07)
[2020-03-21 14:02] VITALS: BP 124/74; TEMP 97.1
== END 2020-03-21 13:20 | disposition home or self-care (01) ==
LOC: AMB 06:46
PROVIDERS: ATTEND Surgery
DX: K80.10 Calculus of gallbladder with chronic cholecystitis without obstruction (principal); J44.9 Chronic obstructive pulmonary disease, unspecified; I10 Essential (primary) hypertension; F41.9 Anxiety disorder, unspecified; F32.9 Major depressive disorder, single episode, unspecified; E78.00 Pure hypercholesterolemia, unspecified; G40.909 Epilepsy, unspecified, not intractable, without status epilepticus; G81.92 Hemiplegia, unspecified affecting left dominant side; K59.00 Constipation, unspecified; Z86.73 Personal history of transient ischemic attack (TIA), and cerebral infarction without residual deficits; Z82.49 Family history of ischemic heart disease and other diseases of the circulatory system; Z80.9 Family history of malignant neoplasm, unspecified; Z83.6 Family history of other diseases of the respiratory system; Z88.8 Allergy status to other drugs, medicaments and biological substances; Z79.899 Other long term (current) drug therapy
CPT/HCPCS: 00790; 47562; 71046; 88304; 93005; J1100; J2250; J2405; J3010; J3475; J3490; J7120; J7614

== ENCOUNTER → 2020-04-24 | Outpatient (CLI) | payer MEDICARE, MEDICAID | LOC: YCHH 12:53 | PROVIDERS: ATTEND Family Medicine | DX: J44.9 Chronic obstructive pulmonary disease, unspecified (principal); E53.8 Deficiency of other specified B group vitamins; E55.9 Vitamin D deficiency, unspecified; E03.9 Hypothyroidism, unspecified; D64.9 Anemia, unspecified; E78.5 Hyperlipidemia, unspecified ==